=== PATIENT | male | born 1970 | race African-American/Black ===

== ENCOUNTER 2024-06-23 04:22 | Day surgery (SDC) | payer OTHER ==
[2024-06-17 13:45] VITALS: BMI 28.8
[2024-06-23 09:54] VITALS: TEMP 97.8
[2024-06-23] MEDS ORDERED: MIDAZOLAM HCL 2 MG/2 ML SINGLE DOSE VIAL ONE (11:39)
[2024-06-23] MEDS ORDERED: KETOROLAC TROMETHAMINE 30 MG/1 ML VIAL ONE (11:41)
[2024-06-23 12:29] VITALS: BP 124/83; PULSE 72; RESP 18
== END 2024-06-23 14:07 | disposition home or self-care (01) ==
LOC: JASU-SURG 04:22
PROVIDERS: ATTEND Urology
PROC: 0TF3XZZ Fragmentation in Right Kidney Pelvis, External Approach (ICD-10-PCS; principal; 2024-06-23 10:30)
DX: N20.0 Calculus of kidney (principal)
CPT/HCPCS: 82962

== ENCOUNTER 2025-03-30 06:19 | Day surgery (SDC) | payer OTHER ==
[2025-03-25 13:58] VITALS: BMI 28.2
[2025-03-30 11:51] VITALS: RESP 20
[2025-03-30] MEDS ORDERED: SUCCINYLCHOLINE CHLORIDE 200 MG/10 ML SYRINGE ONE (12:26)
[2025-03-30] MEDS ORDERED: MIDAZOLAM HCL 2 MG/2 ML SINGLE DOSE VIAL ONE (12:26)
[2025-03-30 15:39] VITALS: BP 128/94; PULSE 62; TEMP 96.9
== END 2025-03-30 14:10 | disposition home or self-care (01) ==
LOC: JASU-SURG 06:19
PROVIDERS: ATTEND Urology
PROC: 0TF3XZZ Fragmentation in Right Kidney Pelvis, External Approach (ICD-10-PCS; principal; 2025-03-30 12:45)
DX: N20.0 Calculus of kidney (principal)
CPT/HCPCS: 82962